=== PATIENT | male | born 1975 | race Caucasian/White ===

== ENCOUNTER 2019-04-11 15:24 | Outpatient (CLI) | payer OTHER | END 2019-04-11 15:35 | disposition home or self-care (01) | LOC: RAD 15:24 | DX: R06.02 Shortness of breath (principal) ==

== ENCOUNTER 2019-04-23 12:05 | Emergency (ER) | payer OTHER ==
[~2019-04-23] VITALS: Ht 193 cm; Wt 88.5 kg
[2019-04-23] MEDS ORDERED: ALEGRA (12:29)
== END 2019-04-23 16:16 | disposition home or self-care (01) ==
LOC: ER 12:05
DX: S92.414A Nondisplaced fracture of proximal phalanx of right great toe, initial encounter for closed fracture (principal); W22.8XXA Striking against or struck by other objects, initial encounter; Y93.89 Activity, other specified; Y92.89 Other specified places as the place of occurrence of the external cause; Y99.8 Other external cause status